=== PATIENT | male | born 1990 | race Caucasian/White ===

== ENCOUNTER 2016-08-12 09:36 | Inpatient (IN) | payer SELFPAY ==
[~2016-08-12] VITALS: Ht 175.3 cm; Wt 106.0 kg
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
--- NOTE | ~2016-08-12 | NDGEN ---
PATIENT'S NAME: CHAIM GARCIA [facility] AGE: 26 Y [address] ROOM: [address] [address] LOCATION: [facility] ADMIT DATE: 08/12/2016 Neurodiagnostics DISCHARGE DATE: FAMILY PHYSICIAN: PHYSICIAN, NO ATTENDING PHYSICIAN: Denny LARA PROCEDURE: ELECTROENCEPHALOGRAM DATE OF PROCEDURE: 08/13/19 TIME: 2:15 p.m. INDICATION: A 26-year-old male patient, who was known to have a generalized seizure and likely was postictal at the time of the EEG study. FINDINGS: This was a standard 20-lead EEG, which was not done with photic stimulation or hyperventilation since the patient would not participate. This was extremely poor study due to extensive motor movement artifact throughout the complete study. It appears that the patient was moving throughout the study and was rambunctious. He had his eyes closed and eventually fell asleep 5 minutes into the study and was noted to be snoring, and the background noise was extensive and may be secondary to also some equipment in the room. The best leads appeared to be the frontal leads to essentially indicate the background rhythm, but the obscuration in the background rhythm was extremely poor. IMPRESSION: There was extensive movement artifact throughout this whole recording that lasted approximately 11 minutes, and thus a general background rhythm could not be assessed due to the patient moving. If the patient remains stable currently and is not having any active clinical seizures, we recommend a repeat EEG likely as an outpatient setting. MD GRISELDA MADRIGAL/javan /[id number] dtt: 08/17/160 , ISH PAIZ dtd: 08/12/16 2238
--- NOTE | ~2016-08-12 | DS ---
PATIENT'S NAME: CHAIM GARCIA [facility] AGE: 26 Y [address] ROOM: [address] [place], [place] [address] LOCATION: [facility] ADMIT DATE: 08/12/2016 Discharge Summary DISCHARGE DATE: 08/14/2016 FAMILY PHYSICIAN: PHYSICIAN, NO ATTENDING PHYSICIAN: Denny ARANA PRIMARY DIAGNOSES: 1. Alcohol intoxication with withdrawal symptoms. 2. Seizure disorder. 3. Acute hypoxic respiratory failure. 4. Right lower lobe pneumonia, probably aspiration. 5. Chronic conditions include alcohol dependence and tobacco abuse. PRINCIPAL PROCEDURES DONE FOR THE PATIENT: None was indicated. LABORATORY DATA: On admission, troponin less than 0.040. Lactic acid 1.6. WBC 10.1, was stable throughout hospital stay, 3.2 upon discharge. H and H were 15.0 and 45.3, prior to discharge were 13.9 and 42.1. Platelet was 212 on admission, prior to discharge was 183. Sodium on admission was 146, prior to discharge was 142. Creatinine on admission was 0.9, prior to discharge was 0.8. Potassium was stable throughout hospital stay at 4.1, prior to discharge was 4.2. Bicarbonate on admission was 31, prior to discharge was 29. Calcium was 7.4, was stable throughout the hospital stay. Phosphorus on admission was 1.7, was repleted. Magnesium on admission was 1.3, was also repleted. UA on admission showed leukocytes negative, nitrite negative, wbc 0 to 2, and bacteria rare. Urine drug screen was positive for marijuana. Alcohol level was 0.145. Acetaminophen level 4.2. Salicylate less than 2.8. CRP less than 0.29. Prolactin was 10.2. Procalcitonin was less than 0.05. TSH was 1.140. RADIOLOGY: CT of the head was normal CT of the head. Chest x-ray showed right hilar prominences, probably benign, incidental. CT of the chest with contrast showed patchy hazy parenchymal opacity at the posteromedial, mid, and lower right lung, worsen for early infiltrate or aspiration pneumonia. HOSPITAL COURSE: For history of present illness, please take a look at the H and P, which was done by Dr. Arana. The patient was admitted to the neuro trauma unit; was managed; was put on the CIWA pathway; and did have some withdrawal symptoms of tachycardia, hypertension, and some sweatiness during his first day of his hospital stay. He did also present with acute hypoxic respiratory failure as well and was on oxygen. He was also followed up by the neurologist given the seizure which he presented with, however, he did not have any seizure throughout his hospital stay. He was put on phenobarbital by the neurologist of 30 mg twice daily. The patient continued to be managed as per the CIWA pathway. By the next day of his hospital stay, he felt better, his heart rate had improved, and his blood pressure had improved as well even PATIENT'S NAME: CHAIM GARCIA [facility] AGE: 26 Y [address] ROOM: [place] [address] LOCATION: [facility] ADMIT DATE: 08/12/2016 Discharge Summary DISCHARGE DATE: 08/14/2016 FAMILY PHYSICIAN: PHYSICIAN, NO ATTENDING PHYSICIAN: Denny ARANA though it was too high for his age, but was much better than when he came in. He was successfully weaned off oxygen. CT of his chest was done on the subsequent day of his hospital admission and the result which was obtained on the day of discharge revealed possible aspiration on the right lower lung zone and so upon discharge, the patient was started on Levaquin for a total of 7 days. He was also counseled on importance of smoking cessation as well as stopping excessive alcohol consumption. On the day of discharge, he ambulated pretty well on the hallway without any symptoms. On the day of discharge, he did not have any clinical evidence of withdrawal and the patient was discharged home. DISCHARGE INSTRUCTIONS: The patient was told that he is not supposed to be driving until he is reevaluated by Dr. Burgos. The patient reports that he does not drive in the first place. MEDICATIONS ON DISCHARGE: 1. Phenobarbital mg p.o. b.i.d. 2. Celexa 20 mg p.o. daily. 3. Levaquin 750 mg daily p.o. for 7 days. MD SHIKHA HENRIQUEZ/javan /[id number] d: 08/14/16 2346 t: 08/23/16 1402, DISCHARGE SUMMARY
[2016-08-12 10:11] LABS: BILIRUBIN URINE NEGATIVE (NEGATIVE); BLOOD URINE 250 /UL (NEGATIVE); COLOR URINE YELLOW (YELLOW); GLUCOSE URINE NEGATIVE (NEGATIVE); KETONE URINE NEGATIVE (NEGATIVE); LEUKOCYTES URINE NEGATIVE /UL (NEGATIVE); NITRITE URINE NEGATIVE (NEGATIVE); PROTEIN URINE 15 mg/dL (NEGATIVE); SPEC GRAVITY URINE 1.015 (1.003-1.035); UROBILINOGEN URINE NORMAL (NORMAL)
[2016-08-12 10:15] LABS: TURBIDITY URINE 1+ (CLEAR)
[2016-08-12 10:17] LABS: RBC URINE FULL FIELD #/HPF (NEGATIVE); WBC URINE 0-2 #/HPF (NEGATIVE)
[2016-08-12 10:18] LABS: BACTERIA URINE RARE (NEGATIVE); EPITHELIAL URINE NEGATIVE #/HPF (NEGATIVE)
[2016-08-12 10:23] LABS: BASOPHIL # 0.1 K/uL (0.0-0.2); BASOPHIL % 0.9 %; EOSINOPHIL # 0.3 K/uL (0.0-0.5); EOSINOPHIL % 2.5 %; HEMATOCRIT 45.3 % (37.0-53.0); IMMATURE GRANULOCYTE # 0.1 K/uL (0.0-0.3); IMMATURE GRANULOCYTE % 0.7 %; LYMPHOCYTE # 3.2 K/uL (0.8-4.0); LYMPHOCYTE % 31.2 %; MCH 31.3 pg (27.0-34.0); MCHC 33.1 gm/dL (32.0-36.5); MCV 94.4 fl (83.0-98.0); MONOCYTE % 9.6 %; MPV 10.3 fl (9.4-12.4); NEUTROPHIL # (ANC) 5.6 K/uL (1.4-9.0); NEUTROPHIL % 55.1 %; NRBC % 0 /100WBC (0-0.00); PLATELET COUNT 212 K/uL (150-450); RDW-CV 13.3 % (11.9-14.6); WBC 10.1 K/uL (4.0-11.0)
[2016-08-12 10:28] LABS: BARBITURATE NEGATIVE (NEGATIVE); COCAINE NEGATIVE (NEGATIVE); OPIATES NEGATIVE (NEGATIVE)
[2016-08-12 10:31] LABS: INR - (THERAPEUTIC) 1.02 (0.92-1.07); PROTIME 10.7 SECONDS (9.8-11.4); PTT 27 SECONDS (25-32)
[2016-08-12 10:32] LABS: AMPHETAMINE NEGATIVE (NEGATIVE)
[2016-08-12 10:41] LABS: ALBUMIN 3.7 gm/dL (3.5-5.0); ALK PHOS 89 IU/L (33-138); ALT 34 IU/L (12-78); AST 25 IU/L (10-40); BLOOD UREA NITROGEN 13 mg/dL (6-24); CHLORIDE 108 mMol/L (96-110); CO2 31 mMol/L (22-32); CREATININE 0.9 mg/dL (0.6-1.3); ESTIMATED GFR (MDRD EQUATION) > 60; POTASSIUM 4.1 mMol/L (3.7-5.1); TOTAL BILIRUBIN 0.3 mg/dL (0.0-1.5); TOTAL PROTEIN 6.4 g/dL (6.0-8.4)
[2016-08-12 10:42] LABS: ANION GAP 11.1 (10.0-19.0); CALCIUM 7.4 mg/dL (8.5-10.5); SODIUM 146 mMol/L (135-145)
[2016-08-12] MEDS ORDERED: CELEXA20 MG PO (14:42)
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
--- NOTE | 2016-08-12 17:37 | NUR ---
Significant Event: Alert & oriented. SBP 140-160, HR 90-110, afebrile, on 1 L O2. EtCO2 monitoring. 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 No seizure episodes since arriving to floor. Dressing changes daily to R) hand. Miranda. Banana bag at 100 ml/hr. Follow-up: continue CIWA
--- NOTE | 2016-08-13 03:56 | NUR ---
Significant Event: Patient is alert and oriented x 3. VSS. HTN. Afebrile. On room air. Lungs clear. Snoring while sleeping. Tachypnea. ETCO2 WNL. Had Melatonin and 1 mg of PO Ativan at bedtime. CIWA was an 8 at that time. Other CIWA scores have been a 1 for a tremor. Denies pain, numbness, or tingling. Moves spontaneously and follows commands. Blind in left eye. Right eye is brisk and reactive. No seizure-like episodes this shift. Was tachycardic first half of the shift but has improved since. Dressing to right hand dry and intact--daily dressing change. Miranda D/C and has voided without difficulty. Has bathroom privileges. Banana bag daily. SBA. IV to left hand and right forearm SL without difficulties. Lungs coarse with inspiratory wheezes. Dr. Burgos started on phenobarbital. Forgetful at times. Follow-up: [facility], possibly home later today, monitor neuro
--- NOTE | 2016-08-13 07:47 | NUR ---
WHILE sleeping SaO2-86%, turned to 2 L NC. ETCO2 at 50. Woke patient, alert and oriented
[2016-08-13 14:02] LABS: ESTIMATED GFR (MDRD EQUATION) > 60
[2016-08-13 14:27] LABS: MAGNESIUM 1.8 mg/dL (1.8-2.6)
[2016-08-13 14:34] LABS: PHOSPHORUS 1.7 mg/dL (2.5-4.9)
--- NOTE | 2016-08-13 15:57 | NUR ---
Significant Event: Patient alert and oriented x3. Follows commands. Is craving a cigarette so is slightly cranky. 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 R) pupil 3mm, brisk. Denies numbness/tingling. Hypertensive, all other VSS on room air. Inspiratory wheezes noted upon auscultation. CT of chest done today. Voids per bathroom. Laceration to side of R) hand and to top of middle finger, both covered with telfa, gauze and coban. IV to L) hand infusing banana bag at 100 mL/hr and magnesium sulfate currently. Will still need potassium phosphate. IV to R) FA, saline locked. Mom at bedside. Follow up: VS/neuros q 4 hours. Up with SBA. Regular diet.
[2016-08-14 05:15] LABS: BASOPHIL # 0.1 K/uL (0.0-0.2); EOSINOPHIL # 0.4 K/uL (0.0-0.5); EOSINOPHIL % 5.1 %; HEMATOCRIT 42.1 % (37.0-53.0); HEMOGLOBIN 13.9 g/dL (12.0-17.0); IMMATURE GRANULOCYTE % 0.5 %; LYMPHOCYTE # 2.7 K/uL (0.8-4.0); LYMPHOCYTE % 32.7 %; MCH 31.3 pg (27.0-34.0); MCV 94.8 fl (83.0-98.0); MONOCYTE # 0.8 K/uL (0.0-1.0); MONOCYTE % 9.5 %; MPV 10.5 fl (9.4-12.4); NEUTROPHIL # (ANC) 4.2 K/uL (1.4-9.0); NEUTROPHIL % 51.2 %; NRBC % 0 /100WBC (0-0.00); PLATELET COUNT 183 K/uL (150-450); RBC 4.44 M/uL (4.00-6.00); RDW-CV 13.1 % (11.9-14.6); WBC 8.2 K/uL (4.0-11.0)
[2016-08-14 05:25] LABS: BLOOD UREA NITROGEN 9 mg/dL (6-24); CALCIUM 8.3 mg/dL (8.5-10.5); CHLORIDE 107 mMol/L (96-110); CO2 29 mMol/L (22-32); CREATININE 0.8 mg/dL (0.6-1.3); ESTIMATED GFR (MDRD EQUATION) > 60
[2016-08-14 05:31] LABS: ANION GAP 10.2 (10.0-19.0); MAGNESIUM 2.1 mg/dL (1.8-2.6); POTASSIUM 4.2 mMol/L (3.7-5.1); SODIUM 142 mMol/L (135-145)
--- NOTE | 2016-08-14 06:00 | NUR ---
Significant Event: Patient is alert and oriented x 3. VSS. HTN. Afebrile. On room air. Tachypnea. Refused ETCO2. Had Melatonin at bedtime. CIWA 0. Denies numbness or tingling. C/O pain to right middle finger. Given Tramadol 25 mg with relief noted. Changed to [place] when patient started to c/o pain later. Moves spontaneously and follows commands. Blind in left eye. Right eye is brisk and reactive. No seizure-like episodes this shift. Tachycardic at times. Dressing to right hand dry and intact--daily dressing change. Has bathroom privileges. Banana bag daily. SBA. IV to left hand and right forearm SL without difficulties. Lungs coarse with inspiratory wheezes. Patient states his mother is annoying him. She stayed at bedside all night. Follow-up: [facility], possibly home today, monitor neuro, waiting for CT results
[2016-08-14] MEDS ORDERED: LEVAQUIN 750 M750 MG PO (11:58)
[2016-08-14] MEDS ORDERED: PHENOBARBITAL30 MG PO (11:58)
--- NOTE | 2016-08-14 15:11 | NUR ---
Patient alert and oriented x3. No seizures since admission. No detox signs/symptoms. Phenobarbital and levaquin given prior to discharge per MD order. IV's discontinued prior to discharge. Nicotine patch taken off prior to discharge since patient stated he was going to smoke right after discharge. Pt discharged at 1445.
== END 2016-08-14 14:45 | disposition disaster alternative care site (69) | DRG 896 ==
LOC: GMED 09:36 → GNTU 11:53
PROVIDERS: Emergency Medicine; Hospitalist; ADMIT Internal Medicine
DX: F10.221 Alcohol dependence with intoxication delirium (principal); J96.01 Acute respiratory failure with hypoxia; J69.0 Pneumonitis due to inhalation of food and vomit; G40.909 Epilepsy, unspecified, not intractable, without status epilepticus; F17.210 Nicotine dependence, cigarettes, uncomplicated; F10.231 Alcohol dependence with withdrawal delirium; S61.411A Laceration without foreign body of right hand, initial encounter; W25.XXXA Contact with sharp glass, initial encounter
CPT/HCPCS: G0480; J3475; J7030; J7050; Q9967